=== PATIENT | female | born 1970 | race Hispanic/Latino ===

== ENCOUNTER 2022-05-01 18:04 | Emergency (ER) | payer OTHER, SELFPAY ==
[2022-05-01] MEDS ORDERED: Bacitracin 1 PK ONE (20:22)
[2022-05-01] MEDS ORDERED: Ondansetron ODT 4 MG TAB ONE ×2 (20:22→21:45)
[2022-05-01] MEDS ORDERED: Boostrix 0.5 ML (Tdap) VIAL (>/=7 yrs of age) ONE (20:22)
== END 2022-05-01 21:48 | disposition home or self-care (01) ==
LOC: CSHERS 18:04
DX: S01.81XA Laceration without foreign body of other part of head, initial encounter (principal); S51.852A Open bite of left forearm, initial encounter; L03.114 Cellulitis of left upper limb; Y04.1XXA Assault by human bite, initial encounter; Z23 Encounter for immunization
CPT/HCPCS: 70450; 90471; 90715; Q0162

== ENCOUNTER 2022-05-11 11:47 | Emergency (ER) | payer SELFPAY ==
[2022-05-11] MEDS ORDERED: Lidocaine 1% PF 5 ML VIAL ONE (14:26)
== END 2022-05-11 15:54 | disposition home or self-care (01) ==
LOC: CSHERS 11:47
DX: L02.414 Cutaneous abscess of left upper limb (principal)
CPT/HCPCS: 10060